=== PATIENT | female | born 1980 | race Caucasian/White ===

== ENCOUNTER 2017-09-08 21:43 | Emergency (ER) | payer OTHER ==
[2017-09-09] MEDS: ONDANSETRON (ODT) 4 MG TAB ODT (00:30)
== END 2017-09-09 01:04 | disposition home or self-care (01) ==
LOC: FTE 21:43
DX: A08.4 Viral intestinal infection, unspecified (principal)
CPT/HCPCS: 99284; Z7502